=== PATIENT | female | born 1985 | race Caucasian/White ===

== ENCOUNTER 2025-03-11 20:00 | Emergency (ER) | payer BC ==
[~2025-03-11] VITALS: Ht 162.6 cm; Wt 77.1 kg
[2025-03-11 20:48] VITALS: BP 124/91; O2SAT 99
== END 2025-03-11 20:48 | disposition home or self-care (01) ==
LOC: ER 20:00
DX: S61.011A Laceration without foreign body of right thumb without damage to nail, initial encounter (principal); F17.290 Nicotine dependence, other tobacco product, uncomplicated; F19.10 Other psychoactive substance abuse, uncomplicated; Z88.7 Allergy status to serum and vaccine; W26.8XXA Contact with other sharp object(s), not elsewhere classified, initial encounter; Y93.G1 Activity, food preparation and clean up; Y92.098 Other place in other non-institutional residence as the place of occurrence of the external cause; Y99.8 Other external cause status
CPT/HCPCS: A4606; A4663